=== PATIENT | female | born 1955 | race Two or more races ===

== ENCOUNTER 2024-10-06 11:18 | Day surgery (SDC) | payer BC, SELFPAY ==
--- NOTE | 2024-09-30 14:06 | PC.NURSE ---
called patient for pre op education and liazon, patient is currently in Dr. Isabel's office for follow up apppointment and would like to talk to him before deciding if she will have LHC procedure.
--- NOTE | 2024-10-03 07:00 | EKG_ITS ---
[facility] Test Date: 2024-10-03 Pat Name: SCOTTY LEE Department: Room: - Gender: Female Loop Tacker: JEFF : 1955 Requested By: Omari Isabel Order Number: [id number] Reading MD: Omari Isabel Measurements Intervals [place] Rate: 95 P: 59 CO: 138 QRS: 70 QRSD: 78 T: 99 QT: 358 QTc: 452 Interpretive Statements SINUS RHYTHM Compared to ECG 09/23/2024 02:52:44 No significant changes /store/S0/[id number]
[2024-10-03 09:02] LABS: Basophils % (Auto) 0 % (0-2.5); Eosinophils # (Auto) 0.1 Thou/mm3 (0.0-0.5); Eosinophils % (Auto) 1 % (0-10); Hematocrit 38.8 % (36.0-46.0); Hemoglobin 12.8 g/dL (12.0-16.0); Immature Granulocytes % (Auto) 1 % (0-0); Immature Granulocytes Auto 0.04 Thou/mm3 (0.00-0.00); Lymphocytes # (Auto) 1.7 Thou/mm3 (1.0-4.8); Lymphocytes % (Auto) 21 % (10-50); Mean Corpuscular Hemoglobin 28.6 pg (25.0-35.0); Mean Corpuscular Volume 87 fL (80-100); Monocytes # (Auto) 0.5 Thou/mm3 (0.0-0.8); Monocytes % (Auto) 6 % (0-12); Neutrophils # (Auto) 5.8 Thou/mm3 (1.8-7.7); Neutrophils % (Auto) 72 % (37-80); Nucleated Red Blood Cell % 0 /100 WBC (0); Platelet Count 340 Thou/mm3 (140-440); RDW Standard Deviation 42.9 fL (36.4-46.3); Red Blood Count 4.47 Miln/mm3 (4.00-5.20)
[2024-10-03 09:33] LABS: Partial Thromboplastin Time 26.2 Seconds (22.0-36.0); Prothrombin Time 10.7 Seconds (9.0-12.2)
[2024-10-03 10:07] LABS: Alanine Aminotransferase 20 U/L (10-49); Albumin/Globulin Ratio 1.7 (1.2-2.2); Alkaline Phosphatase 73 U/L (46-116); Anion Gap 8 (7-16); Aspartate Amino Transferase 24 U/L (0-34); BUN/Creatinine Ratio 15 Ratio (12-20); Blood Urea Nitrogen 12 mg/dL (9-23); Calcium 10.4 mg/dL (8.3-10.6); Calcium (Corrected) 10.4 mg/dL (8.5-10.1); Carbon Dioxide 26.3 mMol/L (20.0-31.0); Chloride 103 mMol/L (98-107); Creatinine (Component) 0.8 mg/dL (0.6-1.3); Globulin 2.9 gm/dL (2.3-3.5); Glucose 167 mg/dL (74-106); Magnesium 1.9 mg/dL (1.6-2.6); Osmolality,Calculated 277 (275-295); Sodium 137 mMol/L (136-145); Total Protein 7.9 gm/dL (5.7-8.2); eGFR > 60 See Note
[2024-10-03 12:36] VITALS: BMI 32.1
[2024-10-03 14:56] LABS: Bilirubin,Total 0.4 mg/dL (0.3-1.2)
[2024-10-03 16:15] LABS: Glucose Estimated Average 169 mg/dL (80-131); Hemoglobin A1C 7.5 % Hgb (4.8-6.0)
[2024-10-06] VITALS (14 sets, daily range): BP systolic 133–169; BP diastolic 83–99; PULSE 74–93; RESP 13–18; TEMP 36.6–36.8; O2SAT 94–100
--- NOTE | 2024-10-06 12:50 | ESOP_ITS ---
Cardiac Cath Procedure Procedure Name DATE OF OPERATION:10/06/2024 PROCEDURE PERFORMED: 1. Successful PCI of mid to distal RCA and RPDA with 3 overlapping stents 3.0 x 16 mm Synergy JAQUELINE stent in the mid RCA as well as 3.0 x 32 mm Synergy JAQUELINE stent in the mid to distal RCA and a third overlapping stent was placed in the distal RCA extending into the ostial as well as the proximal RPDA. Postradiation performed successfully with NC balloon and excellent results with URSZULA-3 flow noted. 2. Successful PCI of and distal RPDA with 2.50 x 28 mm Synergy JAQUELINE stent extending into the distal RCA and overlapping stent in the RCA. 3. Ultrasound-guided access of the right radial artery 4. Moderate conscious sedation for a total of 1 hour. VIDEO GAME PROGRAMMER: Omari Isabel MD Procedure Narrative HISTORY AND INDICATIONS: A 78-year-old female with a past medical history of severe multivessel CAD diagnosed in with severe 90% stenosis of the mid RCA as well as severe 90% stenosis in the small RPDA and distal RCA, severe 80% stenosis of the mid LAD and moderate 50% stenosis of the proximal LAD and 50% stenosis of the proximal OM, essential hypertension, type 2 diabetes mellitus, uterine cancer in 2010 status post radical hysterectomy, radiation therapy now in remission, chronic UTIs with hematuria and clots requiring bladder irrigation in 2023 initially presented with sepsis and perinephritis in early . Cardiology was consulted for NSTEMI. Troponins peaked around 5 and then down trended. Patient was not considered a candidate for CABG given her lesions were in the distal RPDA as well as the mid to distal LAD. Patient also bacteremic with sepsis and was being treated with IV antibiotics and she completed a course of antibiotics for the last 2 to 3 weeks. Patient was recommended PCI of the RCA initially and hence brought to the cardiac catheter lab for further evaluation. Patient explained there is benefits and alternatives of performing PCI including the risk of stroke, heart attack, along with bleeding in detail and patient agreeable. H&P updated and consent signed prior to the procedure. DESCRIPTION OF PROCEDURE: The patient was brought to the cardiac catheterization lab analysis the precautions were followed. Patient was given 1 Mg of Versed and 50 mcg of fentanyl for moderate conscious sedation. 2 mL of lidocaine was given in the right wrist. The right radial artery was accessed via the ultrasound guidance as well as micropuncture technique. A 6 Swedish glide sheath was introduced. INTERVENTION: A 6 Swedish JR4 guide catheter was used to engage the right coronary artery. A run-through wire was used to cross the lesion in the distal RCA as well as the distal RPDA we then used a luge wire to cross the distal RCA into the RPL. We used an emerge 2.25 x 12 mm semicompliant balloon to perform predilatation in the distal RCA as well as the ostial as well as the proximal RPDA. A 2.5 x 28 mm Synergy JAQUELINE stent was placed in the distal RCA and placed across the RPL into the proximal PDA and successfully deployed at 12 laxmi for a total of 30 seconds. We then used a 3.0 x 12 mm emerge NC balloon to perform postdilatation only the distal RCA prior to the bifurcation of the RPL and RPDA. We then used the same balloon to perform predilation of the mid RCA lesion. Patient then complained of some chest pain and immediately 3.0 x 16 mm Synergy JAQUELINE stent was placed but there was some distal edge dissection and we placed another 3.0 x 32 mm Synergy JAQUELINE stent from the mid to distal RCA overlapping with the previous stent. We finally used 3.0 x 12 mm emerge NC balloon again and to perform postdilatation in the overlapping areas in the mid as well as distal RCA stents up to 16 laxmi with excellent results and URSZULA-3 flow. No complications noted. Patient is hemodynamically stable after the procedure patient will be monitored in the Soldering Machine Tender for the next 4 hours and will be discharged home later today if she is hemodynamically stable. Patient was already on aspirin 81 mg once daily but is given aspirin 325 mg x 1 along with the Brilinta 180 mg x 1 during the procedure. She received a total of 9000 units of heparin during the procedure and her ACT was greater than 250 at all times. A radial band was used to achieve the hemostasis of the right radial artery access. Complications: None Specimens: None Blood loss: Estimated 10 ML Summary/findings: Successful PCI of the RCA and RPDA with 3 overlapping stents. 2.5 x 28 mm Synergy JAQEULINE stent in the proximal and ostial RPDA extending into the distal RCA overlapped with a 3.0 x 32 mm Synergy JAQUELINE stent in the mid to distal RCA and 3.0 x 16 mm Synergy JAQUELINE stent in the mid RCA. Post dilation was performed with NC balloon for all the overlapping stents to the distal RCA prior to the bifurcation of the RPDA and RPL. Excellent result with URSZULA-3 flow noted. No complications Recommendations: 1. Recommended dual antiplatelet therapy with aspirin 81 mg once daily lifetime and Brilinta 90 mg twice daily for at least 1 year. High intensity statin Crestor 40 mg or Lipitor 80 mg once daily along with beta-rebecca. 2. Aggressive risk factor modification and keep HbA1c less than 6 and thyroid function normal and LDL less than 70 3. Patient recommended not to lift any weight more than 5 to 10 pounds for the next 7 days and follow up in the office in 7 days. Omari Isabel MD Interventional Cardiology.
--- NOTE | 2024-10-06 19:46 | PC.NURSE ---
per patient she had an episode of hematuria. nurse unable to verify due to urine flushed. no hematuria noted in canister during [place]wick connected. urine rhoda color. notified md shrestha of patient concerns. md recommended to be go to er. however patient refused. patient and spouse educated. Both expressed verbal understanding. she states if continues to experience hematuria, she will seek medical attention and go to er.
== END 2024-10-06 19:40 | disposition home or self-care (01) ==
PROVIDERS: PCP Physician Assistant; Referring Provider Internal Medicine Cardiovascular Disease; Visit Provider Internal Medicine Cardiovascular Disease
PROC: (CPT C9600; principal; 2024-10-06 12:30)
DX: I25.10 Atherosclerotic heart disease of native coronary artery without angina pectoris (principal); E11.9 Type 2 diabetes mellitus without complications; Z87.440 Personal history of urinary (tract) infections; Z01.810 Encounter for preprocedural cardiovascular examination; I24.9 Acute ischemic heart disease, unspecified; E83.42 Hypomagnesemia; I11.9 Hypertensive heart disease without heart failure
CPT/HCPCS: C9600; 36415; 80048; 80053; 83036; 83735; 85025; 85347; 85610; 85730; 93005; 99152; 99153; A4649; C1725; C1769; C1874; C1887; C1894; J0171; J0461; J1643; J2250; J2270; J2310; J2371; J3010; J3490; Q9967; A9270; J1644; J2305

== ENCOUNTER → 2024-10-17 | Outpatient (CLI) | payer BC, SELFPAY ==
[2024-10-17 15:57] LABS: Collection Type, Urine Clean Catch
[2024-10-17 16:51] LABS: Bilirubin,Urine Negative (Negative); Blood,Urine 3+ (Negative); Color,Urine Brown (Lt Yel-Yel); Glucose, Urine Negative (Negative); Ketones,Urine Negative (Negative); Leukocyte Esterase,Urine Positive (Negative); Nitrite,Urine Negative (Negative); PH,Urine 7.5 (5.0-7.0); Protein,Urine 2+ (Neg - Trace); RBC,Urine 1322 /hpf (0-3); Specific Gravity,Urine 1.008 (1.001-1.035); Squamous Epithelial Cell,Urine 2 /hpf (0-5); Urobilinogen,Urine Negative mg/dL (0.0-1.0); WBC,Urine 359 /hpf (0-5)
[2024-10-17 17:14] LABS: Clarity,Urine Hazy (Clear/Hazy)
== END | disposition home or self-care (01) ==
LOC: SLDO 15:39
PROVIDERS: PCP Physician Assistant; Referring Provider Physician Assistant; Visit Provider Physician Assistant
DX: N39.0 Urinary tract infection, site not specified (principal)
CPT/HCPCS: 81001; 87086

== ENCOUNTER → 2024-10-20 | Outpatient (CLI) | payer BC, SELFPAY ==
[2024-10-20 11:08] LABS: Collection Type, Urine Clean Catch
[2024-10-20 11:36] LABS: Basophils % (Auto) 1 % (0-2.5); Eosinophils # (Auto) 0.1 Thou/mm3 (0.0-0.5); Eosinophils % (Auto) 3 % (0-10); Hematocrit 36.3 % (36.0-46.0); Hemoglobin 11.9 g/dL (12.0-16.0); Immature Granulocytes % (Auto) 0 % (0-0); Immature Granulocytes Auto 0.02 Thou/mm3 (0.00-0.00); Lymphocytes # (Auto) 1.5 Thou/mm3 (1.0-4.8); Lymphocytes % (Auto) 30 % (10-50); Mean Corpuscular HGB Conc 32.8 g/dl (31.0-37.0); Mean Corpuscular Hemoglobin 28.7 pg (25.0-35.0); Mean Corpuscular Volume 88 fL (80-100); Monocytes # (Auto) 0.4 Thou/mm3 (0.0-0.8); Monocytes % (Auto) 8 % (0-12); Neutrophils # (Auto) 2.9 Thou/mm3 (1.8-7.7); Neutrophils % (Auto) 58 % (37-80); Nucleated Red Blood Cell % 0 /100 WBC (0); Platelet Count 168 Thou/mm3 (140-440); RDW Standard Deviation 42.9 fL (36.4-46.3); Red Blood Count 4.15 Miln/mm3 (4.00-5.20); White Blood Count 4.9 Thou/mm3 (3.6-11.0)
[2024-10-20 12:00] LABS: Bacteria,Urine 1+; Bilirubin,Urine Negative (Negative); Blood,Urine 2+ (Negative); Budding Yeast,Urine Present; Color,Urine Yellow (Lt Yel-Yel); Glucose, Urine Negative (Negative); Ketones,Urine Negative (Negative); Leukocyte Esterase,Urine Positive (Negative); Nitrite,Urine Negative (Negative); Protein,Urine 1+ (Neg - Trace); RBC,Urine 122 /hpf (0-3); Specific Gravity,Urine 1.016 (1.001-1.035); Squamous Epithelial Cell,Urine 4 /hpf (0-5); Transitional Epi Cells,Urine 1 /hpf (0-5); Urobilinogen,Urine Negative mg/dL (0.0-1.0); WBC,Urine 2394 /hpf (0-5)
[2024-10-20 12:03] LABS: Clarity,Urine Turbid (Clear/Hazy); Culture Indicated,Urine Yes
[2024-10-20 12:10] LABS: Alanine Aminotransferase 14 U/L (10-49); Albumin, Serum 4.7 gm/dL (3.4-4.8); Albumin/Globulin Ratio 2.1 (1.2-2.2); Alkaline Phosphatase 79 U/L (46-116); Anion Gap 10 (7-16); Aspartate Amino Transferase < 8 U/L (0-34); BUN/Creatinine Ratio 19 Ratio (12-20); Bilirubin,Total 0.5 mg/dL (0.3-1.2); Blood Urea Nitrogen 15 mg/dL (9-23); Calcium 9.8 mg/dL (8.3-10.6); Calcium (Corrected) 9.8 mg/dL (8.5-10.1); Carbon Dioxide 25.4 mMol/L (20.0-31.0); Chloride 104 mMol/L (98-107); Creatinine (Component) 0.8 mg/dL (0.6-1.3); Globulin 2.2 gm/dL (2.3-3.5); Glucose 165 mg/dL (74-106); Osmolality,Calculated 282 (275-295); Potassium 3.8 mMol/L (3.4-5.1); Sodium 139 mMol/L (136-145); Total Protein 6.9 gm/dL (5.7-8.2); eGFR > 60 See Note
== END | disposition home or self-care (01) ==
LOC: COPL 10:25
PROVIDERS: PCP Physician Assistant; Referring Provider Physician Assistant; Visit Provider Physician Assistant
DX: N39.0 Urinary tract infection, site not specified (principal); A41.9 Sepsis, unspecified organism; I25.10 Atherosclerotic heart disease of native coronary artery without angina pectoris
CPT/HCPCS: 36415; 80053; 81001; 85025; 87040; 87086

== ENCOUNTER → 2024-10-30 | Outpatient (CLI) | payer BC, SELFPAY ==
[2024-10-30 16:34] LABS: Basophils % (Auto) 1 % (0-2.5); Eosinophils # (Auto) 0.1 Thou/mm3 (0.0-0.5); Eosinophils % (Auto) 1 % (0-10); Hematocrit 31.7 % (36.0-46.0); Hemoglobin 10.8 g/dL (12.0-16.0); Immature Granulocytes % (Auto) 0 % (0-0); Immature Granulocytes Auto 0.01 Thou/mm3 (0.00-0.00); Lymphocytes # (Auto) 1.9 Thou/mm3 (1.0-4.8); Lymphocytes % (Auto) 29 % (10-50); Mean Corpuscular HGB Conc 34.1 g/dl (31.0-37.0); Mean Corpuscular Hemoglobin 29.4 pg (25.0-35.0); Mean Corpuscular Volume 86 fL (80-100); Monocytes # (Auto) 0.5 Thou/mm3 (0.0-0.8); Monocytes % (Auto) 7 % (0-12); Neutrophils # (Auto) 4.1 Thou/mm3 (1.8-7.7); Neutrophils % (Auto) 62 % (37-80); Nucleated Red Blood Cell % 0 /100 WBC (0); Platelet Count 238 Thou/mm3 (140-440); RDW Standard Deviation 43.4 fL (36.4-46.3); Red Blood Count 3.67 Miln/mm3 (4.00-5.20); White Blood Count 6.6 Thou/mm3 (3.6-11.0)
[2024-10-30 17:02] LABS: Ferritin 16 ng/mL (7.3-270.7)
[2024-10-30 21:38] LABS: Iron 41 mcg/dL (50-170)
== END | disposition home or self-care (01) ==
LOC: COPL 15:06
PROVIDERS: PCP Family Medicine; Referring Provider Physician Assistant; Visit Provider Physician Assistant
DX: R53.83 Other fatigue (principal)
CPT/HCPCS: 36415; 82728; 83540; 85025

== ENCOUNTER → 2024-11-11 | Outpatient (CLI) | payer BC, SELFPAY ==
[2024-11-11 12:23] LABS: Collection Type, Urine Catheter
[2024-11-11 13:24] LABS: Bacteria,Urine 1+; Bilirubin,Urine Negative (Negative); Blood,Urine 3+ (Negative); Glucose, Urine Negative (Negative); Ketones,Urine Negative (Negative); Leukocyte Esterase,Urine Positive (Negative); Nitrite,Urine Negative (Negative); Protein,Urine 2+ (Neg - Trace); RBC,Urine 1137 /hpf (0-3); Specific Gravity,Urine 1.017 (1.001-1.035); Squamous Epithelial Cell,Urine 10 /hpf (0-5); Urobilinogen,Urine Negative mg/dL (0.0-1.0); WBC,Urine 2757 /hpf (0-5)
[2024-11-11 13:27] LABS: Clarity,Urine Cloudy (Clear/Hazy); Color,Urine Lt-Yellow (Lt Yel-Yel)
== END | disposition home or self-care (01) ==
LOC: SLDO 11:53
PROVIDERS: PCP Physician Assistant; Referring Provider Physician Assistant; Visit Provider Physician Assistant
DX: N39.0 Urinary tract infection, site not specified (principal)
CPT/HCPCS: 81001; 87086

== ENCOUNTER → 2024-11-14 | Outpatient (CLI) | payer BC, SELFPAY | END | disposition home or self-care (01) | LOC: SLDO 12:49 | PROVIDERS: Referring Provider Physician Assistant; Visit Provider Physician Assistant | DX: R30.0 Dysuria (principal) | CPT/HCPCS: 87086 ==

== ENCOUNTER → 2024-12-15 | Outpatient (BNVA) | payer BC, SELFPAY | END | disposition home or self-care (01) | PROVIDERS: Family Provider Physician Assistant; PCP Physician Assistant; Referring Provider Physician Assistant; Visit Provider Urology | DX: N39.0 Urinary tract infection, site not specified (principal); E11.9 Type 2 diabetes mellitus without complications; I10 Essential (primary) hypertension; C55 Malignant neoplasm of uterus, part unspecified; Z92.3 Personal history of irradiation | CPT/HCPCS: 81003; 99212; G0463 ==

== ENCOUNTER → 2024-12-23 | Outpatient (CLI) | payer BC, SELFPAY ==
[2024-12-23 09:26] LABS: Glucose Estimated Average 154 mg/dL (80-131)
[2024-12-23 09:46] LABS: Alanine Aminotransferase 12 U/L (10-49); Albumin, Serum 4.4 gm/dL (3.4-4.8); Alkaline Phosphatase 82 U/L (46-116); Anion Gap 7 (7-16); Aspartate Amino Transferase 16 U/L (0-34); BUN/Creatinine Ratio 21 Ratio (12-20); Bilirubin,Total 0.4 mg/dL (0.3-1.2); Blood Urea Nitrogen 15 mg/dL (9-23); Calcium 9.4 mg/dL (8.3-10.6); Calcium (Corrected) 9.4 mg/dL (8.5-10.1); Carbon Dioxide 27.3 mMol/L (20.0-31.0); Cardiac Risk Estimate 2.4 RATIO (3.7-5.6); Chloride 105 mMol/L (98-107); Cholesterol 116 mg/dL (132-200); Creatinine (Component) 0.7 mg/dL (0.6-1.3); Globulin 2.2 gm/dL (2.3-3.5); Glucose 160 mg/dL (74-106); HDL Cholesterol 48 mg/dL (40-60); LDL Cholesterol,Calculated 43 mg/dL (0-130); Osmolality,Calculated 281 (275-295); Potassium 4.2 mMol/L (3.4-5.1); Sodium 139 mMol/L (136-145); Total Protein 6.6 gm/dL (5.7-8.2); Triglycerides 123 mg/dL (30-150); eGFR > 60 See Note
== END | disposition home or self-care (01) ==
LOC: COPL 07:59
PROVIDERS: PCP Physician Assistant; Referring Provider Physician Assistant; Visit Provider Physician Assistant
DX: E11.65 Type 2 diabetes mellitus with hyperglycemia (principal); I10 Essential (primary) hypertension; E78.5 Hyperlipidemia, unspecified
CPT/HCPCS: 36415; 80053; 80061; 83036

== ENCOUNTER → 2024-12-26 | Outpatient (CLI) | payer BC, SELFPAY ==
[2024-12-26 16:33] LABS: Collection Type, Urine Clean Catch
[2024-12-26 17:55] LABS: Bilirubin,Urine Negative (Negative); Blood,Urine 3+ (Negative); Color,Urine Red (Lt Yel-Yel); Glucose, Urine Negative (Negative); Ketones,Urine Trace (Negative); Leukocyte Esterase,Urine Positive (Negative); Nitrite,Urine Negative (Negative); Protein,Urine 2+ (Neg - Trace); RBC,Urine 22436 /hpf (0-3); Specific Gravity,Urine 1.015 (1.001-1.035); Squamous Epithelial Cell,Urine 14 /hpf (0-5); Urobilinogen,Urine Negative mg/dL (0.0-1.0); WBC,Urine 4196 /hpf (0-5)
[2024-12-26 18:01] LABS: Clarity,Urine Bloody (Clear/Hazy)
== END | disposition home or self-care (01) ==
LOC: SLDO 16:25
PROVIDERS: PCP Physician Assistant; Referring Provider Physician Assistant; Visit Provider Physician Assistant
DX: N39.0 Urinary tract infection, site not specified (principal)
CPT/HCPCS: 81001; 87086

== ENCOUNTER → 2025-01-26 | Outpatient (CLI) | payer BC, SELFPAY ==
[2025-01-26 12:22] LABS: Basophils % (Auto) 0 % (0-2.5); Eosinophils % (Auto) 0 % (0-10); Hematocrit 31.9 % (36.0-46.0); Immature Granulocytes % (Auto) 0 % (0-0); Immature Granulocytes Auto 0.03 Thou/mm3 (0.00-0.00); Lymphocytes # (Auto) 1.4 Thou/mm3 (1.0-4.8); Lymphocytes % (Auto) 20 % (10-50); Mean Corpuscular HGB Conc 31.3 g/dl (31.0-37.0); Mean Corpuscular Hemoglobin 25.6 pg (25.0-35.0); Mean Corpuscular Volume 82 fL (80-100); Monocytes # (Auto) 0.7 Thou/mm3 (0.0-0.8); Monocytes % (Auto) 9 % (0-12); Neutrophils % (Auto) 70 % (37-80); Nucleated Red Blood Cell % 0 /100 WBC (0); Platelet Count 254 Thou/mm3 (140-440); RDW Standard Deviation 39.4 fL (36.4-46.3); Red Blood Count 3.91 Miln/mm3 (4.00-5.20); White Blood Count 7.2 Thou/mm3 (3.6-11.0)
== END | disposition home or self-care (01) ==
LOC: COPL 11:21
PROVIDERS: PCP Physician Assistant; Referring Provider Internal Medicine Cardiovascular Disease; Visit Provider Internal Medicine Cardiovascular Disease
DX: I25.10 Atherosclerotic heart disease of native coronary artery without angina pectoris (principal)
CPT/HCPCS: 36415; 85025

== ENCOUNTER 2025-02-26 11:08 | Day surgery (SDC) | payer BC, SELFPAY ==
[2025-02-24 15:06] VITALS: BMI 34.5
--- NOTE | 2025-02-25 07:00 | EKG_ITS ---
[facility] (Former[facility] Test Date: 2025-02-25 Pat Name: SCOTTY LEE Department: Room: - Gender: Female Pricing/Signage Team Member: [facility] : 1955 Requested By: Omari Isabel Order Number: [id number] Reading MD: Omari Isabel Measurements Intervals [place] Rate: 86 P: 55 MD: 116 QRS: 62 QRSD: 77 T: 59 QT: 382 QTc: 457 Interpretive Statements SINUS RHYTHM WITH SHORT MD INTERVAL Compared to ECG 10/03/2024 08:46:16 Short MD interval now present /store/S0/[id number]
[2025-02-25 09:21] LABS: Basophils % (Auto) 0 % (0-2.5); Eosinophils % (Auto) 1 % (0-10); Hematocrit 33.1 % (36.0-46.0); Hemoglobin 10.4 g/dL (12.0-16.0); Immature Granulocytes % (Auto) 0 % (0-0); Immature Granulocytes Auto 0.02 Thou/mm3 (0.00-0.00); Lymphocytes # (Auto) 1.6 Thou/mm3 (1.0-4.8); Lymphocytes % (Auto) 27 % (10-50); Mean Corpuscular HGB Conc 31.4 g/dl (31.0-37.0); Mean Corpuscular Hemoglobin 25.1 pg (25.0-35.0); Mean Corpuscular Volume 80 fL (80-100); Monocytes # (Auto) 0.4 Thou/mm3 (0.0-0.8); Monocytes % (Auto) 8 % (0-12); Neutrophils # (Auto) 3.7 Thou/mm3 (1.8-7.7); Neutrophils % (Auto) 64 % (37-80); Nucleated Red Blood Cell % 0 /100 WBC (0); Platelet Count 288 Thou/mm3 (140-440); RDW Standard Deviation 41.1 fL (36.4-46.3); Red Blood Count 4.14 Miln/mm3 (4.00-5.20); White Blood Count 5.8 Thou/mm3 (3.6-11.0)
[2025-02-25 09:37] LABS: Partial Thromboplastin Time 25.1 Seconds (22.0-36.0); Prothrombin Time 10.9 Seconds (9.0-12.2)
[2025-02-25 09:43] LABS: Anion Gap 8 (7-16); BUN/Creatinine Ratio 11 Ratio (12-20); Blood Urea Nitrogen 9 mg/dL (9-23); Calcium 9.3 mg/dL (8.3-10.6); Chloride 105 mMol/L (98-107); Creatinine (Component) 0.8 mg/dL (0.6-1.3); Estimated Creatinine Clearance 69.3 mL/min (>60); Glucose 281 mg/dL (74-106); Osmolality,Calculated 288 (275-295); Potassium 3.9 mMol/L (3.4-5.1); Sodium 140 mMol/L (136-145); eGFR > 60 See Note
[2025-02-26] VITALS (16 sets, daily range): BP systolic 133–164; BP diastolic 72–104; PULSE 70–92; RESP 15–22; TEMP 36.3–37; O2SAT 96–100; BMI 34.2
--- NOTE | 2025-02-26 14:30 | PD.CARDCATH ---
Cardiac Cath Procedure Procedure Name Date: 02/26/2025 MARKETER: Omari Isabel MD PROCEDURE PERFORMED: 1. Successful complex PCI performed of the mid LAD with 2.5 x 15 mm [place] stent with excellent results and no complications. 2. Left heart cardiac catheterization including right, left coronary angiograms and left ventriculogram 3. Ultrasound-guided access of the right radial artery 4. Conscious sedation for 30 minutes Procedure Narrative HISTORY AND INDICATIONS: A 69-year-old female with a PMHx of severe multivessel CAD s/p PCI 09/2024 3 overlapping stents to RCA and RPDA -2.5 x 28 mm Synergy JAQUELINE stent in the proximal and ostial RPDA to dRCA overlapped with a 3.0 x 32 mm Synergy JAQUELINE stent in the m-dRCA and 3.0 x 16 mm Synergy JAQUELINE stent in the mRCA, with residual 50% pLAD and proximal OMl, systolic heart failure EF 40-45% dx 09/2024, HTN (dx~2009), HLD, DM2 (dx~2014), uterine cancer in 2010 s/p radical hysterectomy, radiation therapy now in remission, chronic UTI's with hematuria and clots requiring bladder irrigation in 2023, was brought in for a [facility] to check patency of RCA stents and staged PCI of LAD. All the risk benefits and alternatives of left heart cardiac attrition were explained in detail including the risk of bleeding, heart attack, stroke and in detail. Patient agreeable for the procedure and provided the consent. H&P updated. DESCRIPTION OF PROCEDURE: The patient was brought to the cardiac catheterization lab analysis the precautions were followed. Patient was given 1 Mg of Versed and 50 mcg of fentanyl for moderate conscious sedation. 2 mL of lidocaine was given in the right wrist. The right radial artery was accessed via the ultrasound guidance as well as micropuncture technique. A 6 [place] glide sheath was introduced. We then used a 6 [place] TIG 4 catheter to perform the left coronary angiogram as well as a left ventriculogram which showed the following findings. 1. Left ventricular ejection fraction was normal at 40 to 45% with mild hypokinesis of the apex as well as anterolateral wall. LVEDP was normal at 14 mmHg. There was no significant transvalvular aortic gradient. 2. Right dominant circulation 3. Left main artery is a large-caliber vessel without any significant stenosis. 4. LAD is a large sized artery with 70 to 80% stenosis in the mid LAD, moderate 40-50% stenosis in the proximal LAD with a small diagonal with mild disease. 4. LCx is a large sized artery with medium sized OM1 with moderate 50% stenosis of the proximal OM1. 5. RCA is a large size artery with patent 3 overlapping stents from mid to distal RCA with no ISR. Medium sized RPL without any significant disease. INTERVENTION: A 6 [place] EBU 3.5 guide was used to engage the left main artery. Patient was given weight-based heparin and ACT was greater than 250 alter the procedure. Patient was given aspirin 325 mg x 1 and Plavix 600 mg x 1. Run-through guidewire was used to cross the lesion in the mid LAD without any complications. We then used 2.5 x 12 mm semicompliant balloon for predilatation and predilated multiple times at 68 and 10 laxmi respectively. We used a 2.5 x 15 mm [place] JAQUELINE stent and deployed it successfully at 12 and 14 laxmi for a total of 45 seconds. We then used a 2.5 x 12 mm NC balloon to perform postdilatation for the midportion of the stent which appeared slightly underexpanded. NC balloon was inflated up to 16 and 18 laxmi for a total of 45 seconds. Excellent disease achieved with URSZULA-3 flow and no other complications. Final angiographic pictures were taken and all interventional equipment was removed. ACC data: Pre intervention: mid LAD with 80% stenosis with URSZULA-3 flow Post intervention: mid LAD with 0% residual stenosis with URSZULA-3 flow Patient was already on aspirin and plavix which were continued. A radial band was used to achieve the hemostasis of the right radial artery access. Patient will be monitored in the cardiac Principal Technical Architect for the next 2 to 3 hours and will be discharged home later if hemodynamically stable. Complications: None Specimens: None Blood loss: Estimated 10 ML Summary/findings: 1. LHC showed patent stents in the mid to distal RCA with 3 overlapping stents with no ISR. Mid LAD with severe 80% stenosis, moderate 40 to 60% stenosis in the proximal LAD, 40 to 50% stenosis in the proximal OM1. Rest of the arteries including left main, LCx and other branches showed only minimal disease. 2. LVEF was normal at 40-45% with normal LVEDP. No significant transvalvular aortic gradient noted. 3. Successful complex PCI performed of the mid LAD with 2.5 x 15 mm [place] stent with excellent results and no complications. Recommendations: 1. Recommended dual antiplatelet therapy with aspirin 81 mg once daily lifetime and plavix 75 mg once daily for at least 1 year. High intensity statin and beta-blockers to be continued 2. Recommend aggressive risk factor modification 3. Patient recommended not to lift any weight more than 5 to 10 pounds for the next 7 days and follow-up with me in the office in 7 days. Omari Isabel MD Interventional Cardiology.
== END 2025-02-26 18:15 | disposition home or self-care (01) ==
PROVIDERS: PCP Physician Assistant; Referring Provider Internal Medicine Cardiovascular Disease; Visit Provider Internal Medicine Cardiovascular Disease
PROC: (CPT 93458; principal; 2025-02-26 12:30)
DX: I25.10 Atherosclerotic heart disease of native coronary artery without angina pectoris (principal); I50.22 Chronic systolic (congestive) heart failure; I11.0 Hypertensive heart disease with heart failure; E78.5 Hyperlipidemia, unspecified; E11.9 Type 2 diabetes mellitus without complications; Z95.5 Presence of coronary angioplasty implant and graft; Z90.710 Acquired absence of both cervix and uterus; Z79.82 Long term (current) use of aspirin; Z92.3 Personal history of irradiation; Z79.02 Long term (current) use of antithrombotics/antiplatelets; Z79.899 Other long term (current) drug therapy; Z79.84 Long term (current) use of oral hypoglycemic drugs; Z85.41 Personal history of malignant neoplasm of cervix uteri; Z01.810 Encounter for preprocedural cardiovascular examination
CPT/HCPCS: 93458; C9600; 36415; 80048; 85025; 85347; 85610; 85730; 93005; 99152; 99153; A4649; C1725; C1769; C1874; C1887; C1894; J0171; J0461; J1643; J2250; J2310; J2371; J3010; J3490; Q9967; A9270

== ENCOUNTER → 2025-03-02 | Outpatient (CLI) | payer MEDICARE, BC, SELFPAY ==
--- NOTE | 2025-03-02 09:45 | XR_ITS ---
Examination: Screening digital mammography, bilateral Computer aided detection 3-D breast Tomosynthesis, bilateral Date and time of exam: March 02, 2025 0930 hrs. Compared to mammograms dating to September 29, 2020 Indication: Screening Technique: Nonmagnified MLO, CC views of the breasts to been obtained, reconstructed from 3-D Tomosynthesis images. R2 computer aided detection program utilized for evaluation of suspicious masses and/or abnormal calcifications. 3-D Tomosynthesis images obtained. Findings: The breasts are heterogeneously dense, which may obscure small masses More numerous microcalcifications upper outer right breast Breast biopsy marker nipple level right breast CC view IMPRESSION: BI-RADS Category 0: Incomplete: Need additional imaging evaluation Recommend follow-up magnification spot compression views have more numerous microcalcifications upper outer right breast as well as bilateral breast sonography to complete the workup
== END | disposition home or self-care (01) ==
LOC: CDIM 09:24
PROVIDERS: Referring Provider Physician Assistant; Visit Provider Physician Assistant
DX: Z12.31 Encounter for screening mammogram for malignant neoplasm of breast (principal); R92.0 Mammographic microcalcification found on diagnostic imaging of breast
CPT/HCPCS: 77063; 77067

== ENCOUNTER → 2025-03-04 | Outpatient (CLI) | payer MEDICARE, BC, SELFPAY ==
[2025-03-04 15:44] LABS: Collection Type, Urine Clean Catch
[2025-03-04 17:16] LABS: Bacteria,Urine 2+; Bilirubin,Urine Negative (Negative); Blood,Urine 2+ (Negative); Glucose, Urine Negative (Negative); Ketones,Urine Negative (Negative); Leukocyte Esterase,Urine Positive (Negative); Nitrite,Urine Negative (Negative); Protein,Urine 1+ (Neg - Trace); RBC,Urine 23 /hpf (0-3); Specific Gravity,Urine 1.012 (1.001-1.035); Squamous Epithelial Cell,Urine 7 /hpf (0-5); Urobilinogen,Urine Negative mg/dL (0.0-1.0); WBC,Urine 3406 /hpf (0-5)
[2025-03-04 17:49] LABS: Clarity,Urine Cloudy (Clear/Hazy); Color,Urine Lt Yellow (Lt Yel-Yel)
== END | disposition home or self-care (01) ==
LOC: SLDO 15:40
PROVIDERS: PCP Physician Assistant; Referring Provider Physician Assistant; Visit Provider Physician Assistant
DX: N39.0 Urinary tract infection, site not specified (principal)
CPT/HCPCS: 81001; 87077; 87086; 87186

== ENCOUNTER → 2025-03-26 | Outpatient (CLI) | payer BC, SELFPAY ==
--- NOTE | 2025-03-26 09:22 | XR_ITS ---
Examination: Diagnostic digital mammography, unilateral, right Computer aided detection 3-D breast Tomosynthesis, unilateral Date and time of exam: March 26, 2025 1003 hours INDICATIONS: More numerous microcalcifications upper outer right breast on mammogram March 05, 2025 Technique: Nonmagnified MLO, CC views of the right breast have been obtained, reconstructed from 3-D Tomosynthesis images. R2 computer aided detection program utilized for evaluation of suspicious masses and/or abnormal calcifications. 3-D Tomosynthesis images obtained. Findings: The breast is heterogeneously dense, which may obscure small masses Probably benign calcifications upper outer right breast Impression: BI-RADS category 3: Probably benign findings One additional 6 month right mammogram follow-up is needed
--- NOTE | 2025-03-26 09:30 | XR_ITS ---
Examination: Breast ultrasound complete, bilateral Date and time of exam: March 26, 2025 0928 hours INDICATIONS: Mammogram March 02, 2025 suspicious microcalcifications upper outer right breast Technique: Real-time grayscale ultrasonographic imaging bilateral breasts, including all 4 quadrants as well as nipple retroareolar and axillary regions. Findings: Sonographic images right breast 9:00 nodule circumscribed 6 x 5 mm 11:00 cyst 7 x 8 mm Sonographic images left breast 2:00 nodule circumscribed 4 x 5 mm 3:00 cyst 4 x 4 millimeter 5:00 nodule circumscribed 7 x 7 mm IMPRESSION: BI-RADS Category 3: Probably benign findings One additional 6 month bilateral breast sonography follow-up is needed to document stability of breast nodules described above
== END | disposition home or self-care (01) ==
PROVIDERS: PCP Physician Assistant; Referring Provider Physician Assistant; Visit Provider Physician Assistant
DX: R92.331 Mammographic heterogeneous density, right breast (principal); N63.15 Unspecified lump in the right breast, overlapping quadrants; N63.23 Unspecified lump in the left breast, lower outer quadrant; N63.21 Unspecified lump in the left breast, upper outer quadrant
CPT/HCPCS: 76641; 77061; 77065; G0279

== ENCOUNTER → 2025-06-10 | Outpatient (CLI) | payer BC, SELFPAY ==
[2025-06-10 15:17] LABS: Collection Type, Urine Clean Catch
[2025-06-10 16:29] LABS: Bacteria,Urine 3+; Bilirubin,Urine Negative (Negative); Blood,Urine 2+ (Negative); Glucose, Urine Negative (Negative); Ketones,Urine Negative (Negative); Leukocyte Esterase,Urine Positive (Negative); Nitrite,Urine Negative (Negative); PH,Urine 6.0 (5.0-7.0); Protein,Urine 1+ (Neg - Trace); RBC,Urine 42 /hpf (0-3); Specific Gravity,Urine 1.011 (1.001-1.035); Squamous Epithelial Cell,Urine 8 /hpf (0-5); Urobilinogen,Urine Negative mg/dL (0.0-1.0); WBC,Urine 3274 /hpf (0-5)
[2025-06-10 16:32] LABS: Clarity,Urine Cloudy (Clear/Hazy); Color,Urine Lt-Yellow (Lt Yel-Yel)
== END | disposition home or self-care (01) ==
LOC: SLDO 15:01
PROVIDERS: PCP Physician Assistant; Referring Provider Physician Assistant; Visit Provider Physician Assistant
DX: N39.0 Urinary tract infection, site not specified (principal)
CPT/HCPCS: 81001; 87077; 87086; 87186

== ENCOUNTER → 2025-06-15 | Outpatient (CLI) | payer BC, SELFPAY ==
[2025-06-15 10:18] LABS: Basophils # (Auto) 0.0 Thou/mm3 (0.0-0.2); Basophils % (Auto) 1 % (0-2.5); Eosinophils # (Auto) 0.1 Thou/mm3 (0.0-0.5); Eosinophils % (Auto) 2 % (0-10); Hematocrit 31.6 % (36.0-46.0); Hemoglobin 9.9 g/dL (12.0-16.0); Immature Granulocytes Auto 0.04 Thou/mm3 (0.00-0.00); Lymphocytes # (Auto) 1.7 Thou/mm3 (1.0-4.8); Lymphocytes % (Auto) 30 % (10-50); Mean Corpuscular HGB Conc 31.3 g/dl (31.0-37.0); Mean Corpuscular Hemoglobin 24.7 pg (25.0-35.0); Mean Corpuscular Volume 79 fL (80-100); Monocytes # (Auto) 0.3 Thou/mm3 (0.0-0.8); Monocytes % (Auto) 6 % (0-12); Neutrophils # (Auto) 3.5 Thou/mm3 (1.8-7.7); Neutrophils % (Auto) 61 % (37-80); Nucleated Red Blood Cell # 0.00 Thou/mm3 (0.00-0.00); Nucleated Red Blood Cell % 0 /100 WBC (0); Platelet Count 354 Thou/mm3 (140-440); RDW Standard Deviation 44.1 fL (36.4-46.3); Red Blood Count 4.01 Miln/mm3 (4.00-5.20); White Blood Count 5.7 Thou/mm3 (3.6-11.0)
[2025-06-15 10:36] LABS: Alanine Aminotransferase 11 U/L (10-49); Albumin, Serum 4.1 gm/dL (3.4-4.8); Albumin/Globulin Ratio 1.5 (1.2-2.2); Alkaline Phosphatase 83 U/L (46-116); Anion Gap 9 (7-16); Aspartate Amino Transferase 16 U/L (0-34); BUN/Creatinine Ratio 24 Ratio (12-20); Bilirubin,Total 0.2 mg/dL (0.3-1.2); Blood Urea Nitrogen 19 mg/dL (9-23); Calcium 9.2 mg/dL (8.3-10.6); Calcium (Corrected) 9.2 mg/dL (8.5-10.1); Carbon Dioxide 28.0 mMol/L (20.0-31.0); Cardiac Risk Estimate 2.7 RATIO (3.7-5.6); Chloride 101 mMol/L (98-107); Cholesterol 114 mg/dL (132-200); Creatinine (Component) 0.8 mg/dL (0.6-1.3); Free T4 (Free Thyroxine) 1.25 ng/dL (0.89-1.76); Globulin 2.7 gm/dL (2.3-3.5); Glucose 250 mg/dL (74-106); HDL Cholesterol 42 mg/dL (40-60); LDL Cholesterol,Calculated 38 mg/dL (0-130); Magnesium 1.1 mg/dL (1.6-2.6); Osmolality,Calculated 285 (275-295); Potassium 4.0 mMol/L (3.4-5.1); Sodium 138 mMol/L (136-145); Thyroid Stimulating Hormone 1.47 uIU/mL (0.55-4.78); Total Protein 6.8 gm/dL (5.7-8.2); Triglycerides 169 mg/dL (30-150); eGFR > 60 See Note
[2025-06-15 11:08] LABS: Glucose Estimated Average 229 mg/dL (80-131); Hemoglobin A1C 9.6 % Hgb (4.8-6.0)
== END | disposition home or self-care (01) ==
LOC: COPL 08:09
PROVIDERS: PCP Physician Assistant; Referring Provider Physician Assistant; Visit Provider Physician Assistant
DX: I10 Essential (primary) hypertension (principal); E11.65 Type 2 diabetes mellitus with hyperglycemia; E78.5 Hyperlipidemia, unspecified; R53.83 Other fatigue
CPT/HCPCS: 36415; 80053; 80061; 83036; 83735; 84439; 84443; 85025

== ENCOUNTER → 2025-06-18 | Outpatient (CLI) | payer BC, SELFPAY ==
[2025-06-18 14:38] LABS: Collection Type, Urine Clean Catch
[2025-06-18 16:15] LABS: Bacteria,Urine Rare; Bilirubin,Urine Negative (Negative); Blood,Urine 3+ (Negative); Color,Urine Lt-Yellow (Lt Yel-Yel); Glucose, Urine 3+ (Negative); Ketones,Urine Negative (Negative); Leukocyte Esterase,Urine Positive (Negative); Nitrite,Urine Negative (Negative); PH,Urine 6.0 (5.0-7.0); Protein,Urine Trace (Neg - Trace); RBC,Urine 455 /hpf (0-3); Specific Gravity,Urine 1.020 (1.001-1.035); Squamous Epithelial Cell,Urine 2 /hpf (0-5); Urobilinogen,Urine Negative mg/dL (0.0-1.0); WBC,Urine 111 /hpf (0-5)
[2025-06-18 16:25] LABS: Clarity,Urine Hazy (Clear/Hazy)
== END | disposition home or self-care (01) ==
LOC: SLDO 14:23
PROVIDERS: Referring Provider Physician Assistant; Visit Provider Physician Assistant
DX: N39.0 Urinary tract infection, site not specified (principal)
CPT/HCPCS: 81001; 87077; 87086; 87186

== ENCOUNTER 2025-07-06 11:28 | Emergency (ER) | payer BC, SELFPAY ==
[2025-07-06 12:25] VITALS: BP 158/80; PULSE 78; RESP 18; TEMP 36.9; O2SAT 99; BMI 29.9
--- NOTE | 2025-07-06 12:33 | XR_ITS ---
Examination: CT brain head without contrast. 2-D sagittal coronal reconstructions Date and time of exam:July 06, 2025, 1340 hours INDICATIONS: Patient fell today with injury to the head, head pain CTDI: vol (mGy):48.4 DLP: (mGycm):1021 Technique: Multiple CT axial sections of the brain have been obtained, 5 mm slice thickness. Contrast has not been administered. 2-D sagittal, coronal reconstructions have been obtained Low dose protocols were performed. One or more of the following dose reduction techniques were used; automated exposure control, adjustment of the mA and/or KV according to patient size, use of iterative reconstruction technique. Findings: No significant ventricular enlargement. Intra-axial or extra-axial hemorrhage density is not seen. No mass effect or midline shift Basal cisterns are not remarkable. Fourth ventricle is midline. Cranial vault intact. Impression: Negative for acute hemorrhage, mass effect or midline shift
--- NOTE | 2025-07-06 12:33 | XR_ITS ---
Examination: CT cervical spine without contrast 2-D sagittal reconstructions 2-D coronal reconstructions 3-D reconstructions. Exam date and time:July 06, 2025, 1340 hours INDICATIONS: Patient fell today with injury to the neck, neck pain CTDI:vol (mGy) 13.1 DLP: (mGycm) 314 Technique: Multiple 2 mm axial sections of the cervical spine have been obtained. The coronal and sagittal reconstructions have been obtained. 3-D reconstructions have been obtained. Low dose protocols were performed. One or more of the following dose reduction techniques were used; automated exposure control, adjustment of the mA and/or KV according to patient size, use of iterative reconstruction technique. Findings: Axial sections demonstrate intact base of the skull. C1 exhibit satisfactory relationship to the odontoid. No acute cervical vertebral body fracture seen. Alignment posterior spinous processes satisfactory. Impression: No acute cervical fracture.
--- NOTE | 2025-07-06 12:52 | EDNOTE_ITS ---
ED Head Injury RME/HPI General Chief complaint: Fall Stated complaint: FELL BACK HITTING HEAD ON CEMENT, ON BL. THINNERS Time Seen by Provider: 07/06/25 12:33 Source: patient Arrival date/time: 07/06/25 11:28 69-year-old female with no known medical history presents to the emergency room with a chief complaint of a ground-level fall where she fell back hit her head on cement. The patient is currently on blood thinners. Mode of arrival: ambulatory Limitations: no limitations Related Data Home Medications ?Medication ?Instructions ?Recorded ?Confirmed metoprolol tartrate 25 mg tablet 1 tab PO BID 08/02/22 02/26/25 metformin 500 mg tablet 500 mg PO BIDWMEAL 05/21/23 02/26/25 Held on 02/26/25. Instructions: Resume on 02/28/25. EMPIECE A FLIP [facility] lisinopril 2.5 mg tablet 2.5 mg PO QDAY 09/23/2402/10 aspirin 81 mg tablet,delayed 81 mg PO QDAY 12/15/24 release clopidogrel 75 mg tablet (Plavix) 75 mg PO QDAY 02/26/25 tirzepatide 5 mg/0.5 mL 10 mg subcut QWEEK 12/15/24 02/26/25 subcutaneous pen injector (Mounjaro) atorvastatin 40 mg tablet 40 mg PO DAILY 02/26/2502/10 pregabalin 100 mg capsule 100 mg PO TID 02/26/2502/26 tramadol 50 mg tablet 50 mg PO DAILY 02/26/2502/10 Allergies Allergy/AdvReac Type Severity Reaction Status Date / Time ciprofloxacin Allergy Unknown Verified 07/06/25 11:33 nitrofurantoin Allergy Unknown Verified 07/06/25 11:33 cephalexin (From Keflex) Allergy Headache Verified 07/06/25 11:33 hydrochlorothiazide Allergy Headache, Verified 07/06/25 11:33 edema Review of Systems Review of Systems Systems Reviewed: All systems reviewed, normal except as documented Constitutional Constitutional: Reports system reviewed and no additional complaints, except as documented, Denies fatigue, Denies fever(s), Reports headache(s) and Denies weakness Eyes Eyes: Reports system reviewed and no additional complaints, except as documented, Denies blurry vision and Denies change in vision ENT Ears, Nose, Mouth, and Throat: Reports system reviewed and no additional complaints, except as documented, Denies otalgia, Reports headache(s), Denies nasal congestion, Denies throat swelling and Denies vertigo Cardiovascular Cardiovascular: Reports system reviewed and no additional complaints, except as documented, Denies chest pain, Denies dyspnea and Denies dyspnea on exertion Respiratory Respiratory: Reports system reviewed and no additional complaints, except as documented, Denies chest congestion, Denies cough, Denies dyspnea, Denies dyspnea on exertion and Denies wheezing Gastrointestinal Gastrointestinal: Reports system reviewed and no additional complaints, except as documented, Denies abdominal pain, Denies cramping, Denies nausea and Denies vomiting Genitourinary Genitourinary: Reports system reviewed and no additional complaints, except as documented Musculoskeletal Musculoskeletal: Reports system reviewed and no additional complaints, except as documented and Denies back pain Integumentary/Breasts Skin/Breast: Reports system reviewed and no additional complaints, except as documented and Denies wounds Neurologic Neurologic: Reports system reviewed and no additional complaints, except as documented, Denies confusion, Reports headache(s), Denies lack of coordination, Denies vertigo and Denies weakness Psychiatric Psychiatric: Reports system reviewed and no additional complaints, except as do cumented, Denies anxiety, Denies confusion, Denies depression, Denies paranoia, Denies suicidal ideation and Denies tactile hallucinations Endocrine Endocrine: Reports system reviewed and no additional complaints, except as documented and Denies fatigue Hematologic/Lymphatic Hematologic/Lymphatic: Reports system reviewed and no additional complaints, except as documented and Denies lymphadenopathy Allergic/Immunologic Allergic/Immunologic: Reports system reviewed and no additional complaints, except as documented, Denies throat swelling, Denies urticaria and Denies wheezing Past Medical History Past Medical History NEUROLOGIC: Negative Neurological Disorders or Seizures CARDIAC: Positive Cardiac Disorders, Hypercholesterolemia and Hypertension; Negative Myocardial Infarction, Cardiac Arrhythmia, Atrial Fibrillation, Angina, Heart Murmur, Coronary Artery Disease, Atherosclerotic Heart Disease, Peripheral Vascular Disease, Aneurysm, Congestive Heart Failure, Congenital Heart Disease, Valvular Heart Disease, Rheumatic Fever, Cardiomyopathy, Edema, Pericarditis, Cellulitis, Deep Vein Thrombosis, Hypotension or Varicose Veins RESPIRATORY: Negative Chronic Obstructive Pulmonary Disease (COPD) or Asthma GASTROINTESTINAL: Positive Gastrointestinal Disorders, Gall Bladder Disease (removed), Hemorrhoids and Obesity; Negative Hepatitis, Cirrhosis, Pancreatitis, Celiac Disease, Gastrointestinal Bleed, Esophageal Varices, Davis's Esophagus, Colitis, Ulcerative Colitis, Diverticulitis, Diverticulosis, Ulcer, Irritable Bowel, Crohn's Disease, Obstructive Bowel, Hiatal Hernia or Gastroesophageal Reflux Disease GENITOURINARY: Positive Genitourinary Disorders (chronic bladder problems); Negative Renal Disease, Kidney Stones, Polycystic Kidney Disease, Neurogenic Bladder, Inguinal Hernia, Dialysis or Benign Prostatic Hyperplasia REPRODUCTIVE: Positive Previous Pregnancies (x2) MUSCULOSKELETAL: Positive Musculoskeletal Disorders ENT: Negative Cataracts, Glaucoma, Blind, Retinal Detachment, Macular Degeneration, Ear Infection, Deafness or Eye Prosthesis ENDOCRINE: Positive Endocrine Disorders and Diabetes Mellitus Type 2; Negative Diabetes Mellitus Type 1, Hypoglycemia, Dagmar's Syndrome, Jayce's Disease, Hyperthyroidism, Hypothyroidism, Parathyroid Disease, Pituitary Disease, Systemic Lupus Erythematosus, Syndrome of Inappropriate Antidiuretic Hormone (SIADH), Adrenal Disease or Graves' Disease HEMATOLOGIC: Negative Blood Disorders, Anemia, Leukemia, Hemophilia, Thalassemia, Sickle Cell Disease or Clotting Problems PSYCHO/SOCIAL: Negative Depression or Anxiety OTHER HISTORY: Positive Radiation Therapy and Cancer; Negative Hospitalization, Autoimmune Disease, Shingles, Blood Transfusions, Anesthesia Reactions, Chemotherapy, MRSA or Chicken Pox Family History FAMILY HISTORY: Positive Family Cancer; Negative Family Psychiatric Problems, Family Respiratory Disorders, Family Cardiac Disorders, Family Gastrointestinal Problems, Family Surgery or Family Anesthesia Reaction Surgical History SURGICAL: Positive Cardiac Surgery, Coronary Stent, Cardiac Catheterization, Angiogram, Abdominal Surgery, Hysterectomy and Tubal Ligation; Negative Pacemaker, Endocrine Surgery, Arthroscopy or Neurologic Surgery Social History SMOKING STATUS: Never smoker ED Exam General Limitations: Present no limitations General appearance: Present alert and in no apparent distress Head Head exam: Present atraumatic, normocephalic and normal inspection Expanded Head Exam Head exam physical: Absent laceration, abrasion, contusion, hematoma, raccoon eyes, Gar's sign, tenderness of temporal artery, CSF rhinorrhea or CSF otorrhea Eye Eye exam: Present normal appearance, PERRL and EOMI ENT ENT exam: Present normal exam, normal oropharynx and mucous membranes moist Neck Neck exam: Present normal inspection, full ROM and trachea midline Chest Chest inspection: Present normal inspection and symmetric chest wall rise Respiratory Respiratory exam: Present normal lung sounds bilaterally Cardiovascular Cardiovascular exam: Present regular rate, normal rhythm and normal heart sounds Abdominal Exam Abdominal exam: Present soft and normal bowel sounds Extremities Exam Extremities exam: Present normal inspection and full ROM Back Exam Back exam: Present normal inspection and full ROM Neurological Exam Neurological exam: Present alert, oriented X3 and CN II-XII intact Psychiatric Psychiatric exam: Present normal affect and normal mood Skin Skin exam: Present warm, dry, intact and normal color Course Quality Measures none Orders Category Date Time Status CT cervical spine wo con Stat Exams 07/06/25 12:[address] head/brain wo con Stat Exams 07/06/25 12:33 Completed Vital Signs Vital signs: Vital Signs Temperature 98.5 F 07/06/25 12:25 Pulse Rate 78 07/06/25 12:25 Respiratory Rate 18 07/06/25 12:25 Blood Pressure 158/80 H 07/06/25 12:25 Pulse Oximetry (%) 99 07/06/25 12:25 Oxygen Delivery Method Room Air 07/06/25 12:25 Head Injury MDM Narrative MDM Narrative:: 69-year-old female with no known medical history presents to the emergency room with a chief complaint of a ground-level fall where she fell back hit her head on cement. The patient is currently on blood thinners. Patient is hemodynamically stable in no apparent distress Physical examination shows a normal neurological exam. Pupils are PERRLA EOMs are intact the patient is a GCS of 15 she is alert and oriented x 3. Patient is currently on blood thinners. CT of the head and brain was completed and was negative for any acute findings. CT of the cervical spine was completed was negative for any acute fracture or dislocation Patient was discharged and educated to follow-up with primary care provider in the next 24 to 48 hours and return to the emergency room for any evidence of worsening signs or symptoms Patient data External records reviewed:: [facility] previous records Clinical information provided by:: patient Social determinants that could affect healthcare access:: none Patient has the following chronic illnesses:: No chronic illness How is presenting disease/condition affected by chronic disease/condition?: no chronic disease Evaluation data The following diagnostics were reviewed and interpreted by me:: lab results and radiology exam(s) Lab and/or radiology exams considered but not ordered:: Labs and radiology exams considered and ordered Interpretation Summary: CT head-Findings: No significant ventricular enlargement. Intra-axial or extra-axial hemorrhage density is not seen. No mass effect or midline shift Basal cisterns are not remarkable. Fourth ventricle is midline. Cranial vault intact. Impression: Negative for acute hemorrhage, mass effect or midline shift Medications / Prescriptions Medications or Prescriptions considered but not ordered:: N/A Medication administrations:: N/A Consultations Consultation(s) initiated? (list below): No Diagnosis Differential diagnosis head injury: concussion without loss of consciousness, closed head injury, subarachnoid hematoma, postconcussion syndrome, subdural hematoma and concussion with loss of consciousness Most likely diagnosis given after review of the tests above:: Close head injury Admission Indicated Admission indicated?: not indicated Admission Request Was there a request for admission?: No Disposition Plan Disposition Plan: Discharge Discharge Attestation Discharge Attestation: The patient and all family members were given an opportunity to ask questions and understood the discharge instructions. Discharge instructions specifically effects, indications for sooner follow up or return to the emergency department, and the expected course of current diagnosis. Patient condition: Stable Discharge Plan Plan Patient Disposition: HOME (Self Care) Discharge Disposition comment: Stable Prescriptions/Referrals Prescriptions/Med Rec: No Action clopidogrel [Plavix] 75 mg tablet 75 mg PO QDAY aspirin 81 mg tablet,delayed release (DR/EC) 81 mg PO QDAY Mounjaro 5 mg/0.5 mL pen injector 10 mg subcut QWEEK metoprolol tartrate 25 mg tablet 1 tab PO BID Patient Comments: TAKE 1 TABLET BY MOUTH TWICE DAILY atorvastatin 40 mg tablet 40 mg PO DAILY tramadol 50 mg tablet 50 mg PO DAILY Patient Comments: TAKE 1 TABLET BY MOUTH ONCE DAILY NEEDED FOR 30 DAYS pregabalin 100 mg capsule 100 mg PO TID Patient Comments: TAKE 1 CAPSULE BY MOUTH THREE TIMES DAILY metformin 500 mg Tablet 500 mg PO BIDWMEAL lisinopril 2.5 mg Tablet 2.5 mg PO QDAY Referrals: Bella Davis PA-C [Primary Care Provider] - In 1 week Problem List Clinical Impression: Closed head injury Patient/Caregiver Discharge Instructions Education Materials: ED Head Injury (Adult) Additional Instructions: Please follow-up with your primary care provider in the next [address] of your head and brain was completed and was negative for any acute findings. A CT of your cervical neck was completed and was negative for any acute cervical fractures For any evidence of worsening signs or symptoms return to the emergency room immediately Print Language: Tajik Stand Alone Forms: Tawny Award Info., Patient Portal Info Letter PA/PRESCRIPTION BENEFIT SPECIALIST Supervising Physician HANNAH/PRESCRIPTION BENEFIT SPECIALIST Supervising Physician: Dr. Plummer
[2025-07-06 15:16] VITALS: BP 136/78; PULSE 76; RESP 18; TEMP 36.6; O2SAT 99
[2025-07-06 15:22] VITALS: BP 127/67; PULSE 87; RESP 18; TEMP 36.6; O2SAT 97
== END 2025-07-06 15:23 | disposition home or self-care (01) ==
PROVIDERS: Emergency Provider Emergency Medicine; PCP Physician Assistant
DX: S09.90XA Unspecified injury of head, initial encounter (principal); W18.30XA Fall on same level, unspecified, initial encounter
CPT/HCPCS: 70450; 72125; 99284

== ENCOUNTER → 2025-07-09 | Outpatient (CLI) | payer BC, SELFPAY ==
[2025-07-09 15:31] LABS: Collection Type, Urine Clean Catch
[2025-07-09 16:27] LABS: Bilirubin,Urine Negative (Negative); Blood,Urine 2+ (Negative); Clarity,Urine Clear (Clear/Hazy); Color,Urine Lt-Yellow (Lt Yel-Yel); Glucose, Urine 4+ (Negative); Hyaline Casts,Urine < 1 /hpf (0-1); Ketones,Urine Negative (Negative); Leukocyte Esterase,Urine Positive (Negative); Nitrite,Urine Negative (Negative); PH,Urine 6.0 (5.0-7.0); Protein,Urine Negative (Neg - Trace); RBC,Urine 33 /hpf (0-3); Specific Gravity,Urine 1.014 (1.001-1.035); Squamous Epithelial Cell,Urine 4 /hpf (0-5); Urobilinogen,Urine Negative mg/dL (0.0-1.0); WBC,Urine 57 /hpf (0-5)
== END | disposition home or self-care (01) ==
LOC: SLDO 15:19
PROVIDERS: PCP Physician Assistant; Referring Provider Physician Assistant; Visit Provider Physician Assistant
DX: N39.0 Urinary tract infection, site not specified (principal)
CPT/HCPCS: 81001; 87086

== ENCOUNTER → 2025-07-15 | Outpatient (CLI) | payer BC, SELFPAY ==
[2025-07-15 14:59] LABS: Collection Type, Urine Clean Catch
[2025-07-15 16:26] LABS: Bacteria,Urine Rare; Bilirubin,Urine Negative (Negative); Blood,Urine 3+ (Negative); Clarity,Urine Clear (Clear/Hazy); Color,Urine Lt-Yellow (Lt Yel-Yel); Glucose, Urine 4+ (Negative); Ketones,Urine Negative (Negative); Leukocyte Esterase,Urine Positive (Negative); Nitrite,Urine Negative (Negative); PH,Urine 6.0 (5.0-7.0); Protein,Urine Trace (Neg - Trace); RBC,Urine 179 /hpf (0-3); Specific Gravity,Urine 1.018 (1.001-1.035); Squamous Epithelial Cell,Urine 3 /hpf (0-5); Urobilinogen,Urine Negative mg/dL (0.0-1.0); WBC,Urine 22 /hpf (0-5)
== END | disposition home or self-care (01) ==
LOC: SLDO 14:44
PROVIDERS: Referring Provider Physician Assistant; Visit Provider Physician Assistant
DX: N39.0 Urinary tract infection, site not specified (principal)
CPT/HCPCS: 81001; 87086

== ENCOUNTER → 2025-08-26 | Outpatient (CLI) | payer BC, SELFPAY | END | disposition home or self-care (01) | LOC: SLDO 15:02 | PROVIDERS: PCP Physician Assistant; Referring Provider Physician Assistant; Visit Provider Physician Assistant | DX: N39.0 Urinary tract infection, site not specified (principal) | CPT/HCPCS: 87077; 87086; 87186 ==

== ENCOUNTER → 2025-09-21 | Outpatient (CLI) | payer BC, SELFPAY | END | disposition home or self-care (01) | LOC: SLDO 13:55 | PROVIDERS: PCP Physician Assistant; Referring Provider Physician Assistant; Visit Provider Physician Assistant | DX: N39.0 Urinary tract infection, site not specified (principal) | CPT/HCPCS: 87077; 87086; 87186 ==

== ENCOUNTER → 2025-09-24 | Outpatient (CLI) | payer BC, SELFPAY ==
[2025-09-24 09:02] LABS: Collection Type, Urine Clean Catch
[2025-09-24 09:28] LABS: Basophils # (Auto) 0.0 Thou/mm3 (0.0-0.2); Basophils % (Auto) 1 % (0-2.5); Eosinophils # (Auto) 0.1 Thou/mm3 (0.0-0.5); Eosinophils % (Auto) 2 % (0-10); Hematocrit 31.9 % (36.0-46.0); Hemoglobin 10.1 g/dL (12.0-16.0); Immature Granulocytes Auto 0.04 Thou/mm3 (0.00-0.00); Lymphocytes # (Auto) 1.0 Thou/mm3 (1.0-4.8); Lymphocytes % (Auto) 20 % (10-50); Mean Corpuscular HGB Conc 31.7 g/dl (31.0-37.0); Mean Corpuscular Hemoglobin 25.3 pg (25.0-35.0); Mean Corpuscular Volume 80 fL (80-100); Monocytes # (Auto) 0.3 Thou/mm3 (0.0-0.8); Monocytes % (Auto) 5 % (0-12); Neutrophils # (Auto) 3.6 Thou/mm3 (1.8-7.7); Neutrophils % (Auto) 72 % (37-80); Nucleated Red Blood Cell # 0.00 Thou/mm3 (0.00-0.00); Nucleated Red Blood Cell % 0 /100 WBC (0); Platelet Count 340 Thou/mm3 (140-440); RDW Standard Deviation 40.8 fL (36.4-46.3); Red Blood Count 3.99 Miln/mm3 (4.00-5.20); White Blood Count 5.1 Thou/mm3 (3.6-11.0)
[2025-09-24 09:32] LABS: Bacteria,Urine Rare; Bilirubin,Urine Negative (Negative); Blood,Urine 3+ (Negative); Clarity,Urine Clear (Clear/Hazy); Color,Urine Lt-Yellow (Lt Yel-Yel); Glucose, Urine 3+ (Negative); Ketones,Urine Negative (Negative); Leukocyte Esterase,Urine Positive (Negative); Nitrite,Urine Negative (Negative); PH,Urine 6.0 (5.0-7.0); Protein,Urine Negative (Neg - Trace); RBC,Urine 92 /hpf (0-3); Specific Gravity,Urine 1.009 (1.001-1.035); Squamous Epithelial Cell,Urine 3 /hpf (0-5); Urobilinogen,Urine Negative mg/dL (0.0-1.0); WBC,Urine 119 /hpf (0-5)
[2025-09-24 09:40] LABS: Glucose Estimated Average 344 mg/dL (80-131); Hemoglobin A1C 13.6 % Hgb (4.8-6.0)
[2025-09-24 09:46] LABS: Culture Indicated,Urine Yes
[2025-09-24 09:47] LABS: Creatinine MALB Rnd Ur 37 mg/dL (30-125); Microalbumin Creat Ratio 86 mg/gCrea (<30); Microalbumin, Random Urine 32 mg/L (0-300)
[2025-09-24 09:49] LABS: Ferritin 31 ng/mL (7.3-270.7); Iron 32 mcg/dL (50-170)
[2025-09-24 09:50] LABS: Alanine Aminotransferase 11 U/L (10-49); Albumin, Serum 4.3 gm/dL (3.4-4.8); Albumin/Globulin Ratio 1.8 (1.2-2.2); Alkaline Phosphatase 81 U/L (46-116); Anion Gap 9 (7-16); Aspartate Amino Transferase 13 U/L (0-34); BUN/Creatinine Ratio 13 Ratio (12-20); Bilirubin,Total 0.2 mg/dL (0.3-1.2); Blood Urea Nitrogen 9 mg/dL (9-23); Calcium 9.0 mg/dL (8.3-10.6); Calcium (Corrected) 9.0 mg/dL (8.5-10.1); Carbon Dioxide 28.8 mMol/L (20.0-31.0); Cardiac Risk Estimate 2.8 RATIO (3.7-5.6); Chloride 103 mMol/L (98-107); Cholesterol 112 mg/dL (132-200); Creatinine (Component) 0.7 mg/dL (0.6-1.3); Globulin 2.4 gm/dL (2.3-3.5); Glucose 319 mg/dL (74-106); HDL Cholesterol 40 mg/dL (40-60); LDL Cholesterol,Calculated 48 mg/dL (0-130); Magnesium 1.5 mg/dL (1.6-2.6); Osmolality,Calculated 291 (275-295); Potassium 3.7 mMol/L (3.4-5.1); Sodium 141 mMol/L (136-145); Thyroid Stimulating Hormone 1.63 uIU/mL (0.55-4.78); Total Protein 6.7 gm/dL (5.7-8.2); Triglycerides 120 mg/dL (30-150); eGFR > 60 See Note
[2025-09-24 09:51] LABS: Vitamin B12 267 pg/mL (211-911); Vitamin D 25 Hydroxy Total 24.6 ng/mL (7.3-40.2)
== END | disposition home or self-care (01) ==
LOC: COPL 08:20
PROVIDERS: PCP Family Medicine; Referring Provider Physician Assistant; Visit Provider Physician Assistant
DX: E11.65 Type 2 diabetes mellitus with hyperglycemia (principal); I10 Essential (primary) hypertension; E78.5 Hyperlipidemia, unspecified; E55.9 Vitamin D deficiency, unspecified; D50.9 Iron deficiency anemia, unspecified
CPT/HCPCS: 36415; 80053; 80061; 81001; 82043; 82306; 82570; 82607; 82728; 83036; 83540; 83735; 84443; 85025; 87086

== ENCOUNTER → 2025-09-29 | Outpatient (CLI) | payer BC, SELFPAY ==
[2025-09-29 14:13] LABS: Collection Type, Urine Clean Catch
[2025-09-29 16:47] LABS: Bilirubin,Urine Negative (Negative); Blood,Urine 1+ (Negative); Color,Urine Lt-Yellow (Lt Yel-Yel); Glucose, Urine 1+ (Negative); Ketones,Urine Negative (Negative); Leukocyte Esterase,Urine Positive (Negative); Nitrite,Urine Negative (Negative); PH,Urine 6.5 (5.0-7.0); Protein,Urine Negative (Neg - Trace); RBC,Urine 11 /hpf (0-3); Specific Gravity,Urine 1.011 (1.001-1.035); Squamous Epithelial Cell,Urine 1 /hpf (0-5); Urobilinogen,Urine Negative mg/dL (0.0-1.0); WBC,Urine 469 /hpf (0-5)
[2025-09-29 16:51] LABS: Clarity,Urine Hazy (Clear/Hazy)
== END | disposition home or self-care (01) ==
LOC: SLDO 13:56
PROVIDERS: PCP Family Medicine; Referring Provider Physician Assistant; Visit Provider Physician Assistant
DX: E11.65 Type 2 diabetes mellitus with hyperglycemia (principal)
CPT/HCPCS: 81001; 87086

== ENCOUNTER → 2025-10-06 | Outpatient (CLI) | payer BC, SELFPAY ==
--- NOTE | 2025-10-06 13:00 | XR_ITS ---
Examination: Breast ultrasound complete, bilateral Date and time of exam: October 06, 2025, 1324 hours INDICATIONS: Bilateral breast sonography March 26, 2025 right breast 9:00 nodule 6 mm left breast 2:00 nodule 5 mm 5:00 nodule 7 mm Technique: Real-time grayscale ultrasonographic imaging bilateral breasts, including all 4 quadrants as well as nipple retroareolar and axillary regions. Findings: Sonographic images right breast 9:00 nodule 7 x 7 mm lobular margins 11:00 cyst 6 x 6 mm Sonographic images left breast 2:00 nodule circumscribed 3 x 3 mm 3:00 cyst 5 x 4 mm 5:00 nodule circumscribed 6 x 6 mm IMPRESSION: BI-RADS Category 2: Benign findings
--- NOTE | 2025-10-06 14:00 | XR_ITS ---
Examination: Diagnostic digital mammography, unilateral, right Computer aided detection 3-D breast Tomosynthesis, unilateral Date and time of exam: October 06, 2025, 1315 hours INDICATIONS: Mammogram 06/26/2025 probably be benign calcifications upper outer right breast Technique: Nonmagnified MLO, CC views of the right breast have been obtained, reconstructed from 3-D Tomosynthesis images. R2 computer aided detection program utilized for evaluation of suspicious masses and/or abnormal calcifications. 3-D Tomosynthesis images obtained. Findings: The breast is heterogeneously dense, which may obscure small masses Diffuse microcalcifications outer right breast on the cc view Breast biopsy marker with nodule 10 mm upper right breast Impression: BI-RADS Category 2: Benign findings Return to yearly follow-up mammography
== END | disposition home or self-care (01) ==
PROVIDERS: PCP Family Medicine; Referring Provider Physician Assistant; Visit Provider Physician Assistant
DX: R92.321 Mammographic fibroglandular density, right breast (principal)
CPT/HCPCS: 76641; 77061; 77065; G0279

== ENCOUNTER → 2025-10-12 | Outpatient (CLI) | payer BC, SELFPAY | END | disposition home or self-care (01) | LOC: SLDO 14:42 | PROVIDERS: PCP Family Medicine; Referring Provider Physician Assistant; Visit Provider Physician Assistant | DX: N39.0 Urinary tract infection, site not specified (principal) | CPT/HCPCS: 87077; 87086; 87186 ==

== ENCOUNTER → 2025-10-27 | Outpatient (CLI) | payer BC, SELFPAY | END | disposition home or self-care (01) | LOC: SLDO 14:23 | PROVIDERS: Referring Provider Physician Assistant; Visit Provider Physician Assistant | DX: N39.0 Urinary tract infection, site not specified (principal) | CPT/HCPCS: 87077; 87086; 87186 ==